=== PATIENT | female | born 1950 | race Caucasian/White ===

== ENCOUNTER 2021-01-03 05:30 | Emergency (ER) | payer MEDICARE ==
[~2021-01-03] VITALS: Ht 157.5 cm; Wt 68.2 kg
[~2021-01-03 05:30] MED LIST: THYROID OR; ULTRAM50 MG OR
[2021-01-03 08:30] VITALS: BP 139/70
[2021-01-03] MEDS ORDERED: MOTRIN800 MG PO (08:44)
[2021-01-03] MEDS ORDERED: TYLENOL500 MG PO (08:44)
== END 2021-01-03 08:49 | disposition home or self-care (01) ==
LOC: ED 05:30
PROC: 0RSJXZZ Reposition Right Shoulder Joint, External Approach (ICD-10-PCS; principal; 2021-01-03)
DX: S43.014A Anterior dislocation of right humerus, initial encounter (principal); W19.XXXA Unspecified fall, initial encounter

== ENCOUNTER 2022-10-17 06:29 | Emergency (ER) | payer MEDICARE ==
[2022-10-17] VITALS (10 sets, daily range): BP systolic 107–141; BP diastolic 42–63
[~2022-10-17] VITALS: Ht 157.5 cm; Wt 65.7 kg
[~2022-10-17 06:29] MED LIST changes: +MOTRIN800 MG PO; +TYLENOL500 MG PO
[2022-10-17] MEDS ORDERED: ENTRESTO 24-261 TAB PO (06:43)
[2022-10-17] MEDS ORDERED: OMEPRAZOLE DR40 MG PO (06:43)
[2022-10-17] MEDS ORDERED: LEVOTHYROXIN75 MC1 PO (06:43)
[2022-10-17] MEDS ORDERED: ASPIRINCHW 81MG PO (06:44)
[2022-10-17 07:32] LABS: HEMATOCRIT 42.7 % (37.0-47.0); HEMOGLOBIN 13.8 g/dl (12.0-16.0); IMMATURE GRANULOCYTES 0.3 % (0.0-5.0); LYMPH% 5.6 % (15-41); MEAN CELL VOLUME 85.2 fL CALC (80.0-100.0); MEAN CORPUSCULAR HGB 27.5 pG CALC (26.0-32.0); MEAN CORPUSCULAR HGB CONC 32.3 g/dL CAL (32.0-36.0); MONO% 3.1 % (2-13); NEUT# 12.72 thou/uL (2.00-7.15); RED BLOOD COUNT 5.01 mill/uL (4.20-5.60); RED CELL DISTRI WIDTH 13.4 % (11.5-15.5)
[2022-10-17 07:42] LABS: URINE COLOR YELLOW
[2022-10-17 07:43] LABS: URINE BILIRUBIN - DIPSTICK NEGATIVE (NEGATIVE); URINE BLOOD DIPSTICK SMALL (NEGATIVE); URINE GLUCOSE - DIPSTICK NEGATIVE (NEGATIVE); URINE KETONE Negative (NEGATIVE); URINE LEUK ESTERASE NEGATIVE (NEGATIVE); URINE NITRITE - DIPSTICK NEGATIVE (Negative); URINE PH 8.5 (4.5-8.0); URINE PROTEIN - DIPSTICK Trace mg/dL (NEG-TRACE); URINE SPECIFIC GRAVITY 1.015
[2022-10-17 07:44] LABS: URINE EPITHELIAL CELLS FEW EPI/hpf (0-FEW)
[2022-10-17 07:58] LABS: ALBUMIN 4.8 g/dL (3.2-5.0); ALKALINE PHOSPHATASE 70 u/l (38-126); AMYLASE 80 u/l (30-110); BUN 7 mg/dL (8-23); BUN/CREATININE RATIO 10 (12-20 (CALC)); CARBON DIOXIDE 26 mmol/l (22-30); CHLORIDE 98 mmol/l (95-108); CREATININE 0.7 mg/dL (0.5-1.0); GFR FOR AFR.AMER. > 60 ML/MIN (>=60 (CALC)); GFR OTHER RACES > 60 ML/MIN (>=60 (CALC)); LIPASE 45 u/l (23-300); POTASSIUM 4.1 mmol/l (3.5-5.1); SGOT/AST 41 u/l (9-36)
[2022-10-17 07:59] LABS: ANION GAP 14 (6-22 (CALC)); SODIUM 134 mmol/l (137-146)
[2022-10-17] MEDS ORDERED: CIPROFLOXACN500 MG PO (09:14)
[2022-10-17] MEDS ORDERED: METRONIDAZOLE500 MG PO (09:14)
[2022-10-17] MEDS ORDERED: ZOFRAN4 MG/TAB PO (09:14)
== END 2022-10-17 09:37 | disposition home or self-care (01) ==
LOC: ED 06:29
PROVIDERS: Emergency Medicine
DX: K57.32 Diverticulitis of large intestine without perforation or abscess without bleeding (principal); K56.7 Ileus, unspecified; U07.1 COVID-19; K21.9 Gastro-esophageal reflux disease without esophagitis
CPT/HCPCS: Q9967